=== PATIENT | female | born 1985 | race Caucasian/White ===

== ENCOUNTER 2020-12-01 12:57 | Emergency (ER) | payer OTHER ==
[~2020-12-01 12:57] MED LIST: CEFUROXIME500 MG PO; NORCO 5-325 TA1 EACH PO; PYRIDIUM200 MG PO
[2020-12-01 14:44] LABS: HEMOGLOBIN 13.5 gm/dl (12.3-15.3); RED BLOOD COUNT 4.68 M/UL (4.00-5.10); WHITE BLOOD COUNT 13.4 K/UL (4.5-11.0)
[2020-12-01 15:02] LABS: BUN/CREATININE RATIO 14 (0-10)
[2020-12-01] MEDS ORDERED: AMOXICILLIN500 MG PO (15:38)
[2020-12-01] MEDS ORDERED: ALBUTEROL0.63 MG/3 INH (15:38)
[2020-12-01] MEDS ORDERED: MEDROL4 MG PO (15:45)
== END 2020-12-01 15:56 | disposition home or self-care (01) ==
LOC: ER1 12:57
PROVIDERS: Preventive Medicine Occupational Medicine
DX: J01.90 Acute sinusitis, unspecified (principal); Z20.822 Contact with and (suspected) exposure to COVID-19; F17.210 Nicotine dependence, cigarettes, uncomplicated
CPT/HCPCS: 0240U; 70486; 80048; 85025; 86140; 99284

== ENCOUNTER 2022-04-09 22:40 | Emergency (ER) | payer OTHER ==
[~2022-04-09 22:40] MED LIST changes: +ALBUTEROL0.63 MG/3 INH; +AMOXICILLIN500 MG PO; +MEDROL4 MG PO
[2022-04-09 23:40] LABS: RED BLOOD COUNT 4.68 M/UL (4.00-5.10)
[2022-04-09 23:52] LABS: BUN/CREATININE RATIO 11 (0-10)
[2022-04-12 13:09] LABS: CHOLESTEROL, TOTAL 184 mg/dL (100-199); HDL SIZE 8.7 nm (>=9.2); HDL-C 44 mg/dL (>39); HDL-P (TOTAL) 27.7 umol/L (>=30.5); LARGE HDL-P 3.3 umol/L (>=4.8); LARGE VLDL-P 2.3 nmol/L (<=2.7); LDL SIZE 21.2 nm (>20.5); LDL SIZE 21.2 nm (>=20.8); LDL-C 122 mg/dL (0-99); LDL-P 1274 nmol/L (<1000); LP-IR SCORE 49 (<=45); SMALL LDL-P 499 nmol/L (<=527); TRIGLYCERIDES 98 mg/dL (0-149); VLDL SIZE 41.7 nm (<=46.6)
== END 2022-04-10 01:25 | disposition left against medical advice (07) ==
LOC: ER1 22:40
PROVIDERS: Student in an Organized Health Care Education/Training Program
DX: Z53.21 Procedure and treatment not carried out due to patient leaving prior to being seen by health care provider (principal)
CPT/HCPCS: 80053; 80061; 81001; 82150; 83704; 84703; 85025